=== PATIENT | female | born 1975 | race African-American/Black ===

== ENCOUNTER 2017-09-16 07:28 | Outpatient (CLI) | payer OTHER | END 2017-09-16 07:29 | disposition home or self-care (01) | LOC: BICMRI 07:28 | PROVIDERS: ATTEND Neurological Surgery | DX: S33.6XXA Sprain of sacroiliac joint, initial encounter (principal); M54.89 Other dorsalgia; M47.896 Other spondylosis, lumbar region | CPT/HCPCS: 72148 ==